=== PATIENT | female | born 1975 | race Caucasian/White ===

== ENCOUNTER → 2018-02-17 | Outpatient (CLI) | payer BC ==
--- NOTE | 2018-02-17 10:26 | MM ---
Reason for exam: additional evaluation requested from prior study. Last mammogram was performed 3 years and 5 months ago. History: Patient has history of breast cancer at age 38 and had first child at age 34. Radiation therapy of the right breast, January 2014. Lumpectomy of the right breast, September 16, 2013. Chemotherapy, August 2013. Malignant u/S right breast needle core of the right breast, July 30, 2013. Malignant u/S right breast needle core of the right breast, July 30, 2013. Implant Removal of both breasts, 2002. Saline implants, 2001. Implant Removal of both breasts, 2001. Took hormonal contraceptives for 20 years. Took antineoplastic for 4 months beginning at age 39. Physical Findings: Nurse Summary: 0.5cm nodule in the right breat at 10 o'clock scar (nurse dw). MG 3D Diag Mammo W/Cad JULIET Bilateral CC and MLO view(s) were taken. Prior study comparison: September 23, 2014, bilateral MG diagnostic mammo w CAD JULIET. July 30, 2013, right breast diagnostic digital santiago. There are scattered fibroglandular densities. No significant new findings when compared with previous films. These results were verbally communicated with the patient and result sheet given to the patient on 02/17/18. ASSESSMENT: Incomplete: need additional imaging evaluation, BI-RAD 0 RECOMMENDATION: Ultrasound of the right breast.
--- NOTE | 2018-02-17 10:36 | USB ---
Reason for exam: additional evaluation requested from abnormal screening. History: Patient has history of breast cancer at age 38 and had first child at age 34. Radiation therapy of the right breast, January 2014. Lumpectomy of the right breast, September 16, 2013. Chemotherapy, August 2013. Malignant u/S right breast needle core of the right breast, July 30, 2013. Malignant u/S right breast needle core of the right breast, July 30, 2013. Implant Removal of both breasts, 2002. Saline implants, 2001. Implant Removal of both breasts, 2001. Took hormonal contraceptives for 20 years. Took antineoplastic for 4 months beginning at age 39. US Breast Limited RT Technologist: Elina Woods, RT (R)(M) Right limited breast ultrasound including focal area of concern, retroareolar and axilla demonstrates a 10 x 5 x 7mm fluid collections within post surgical changes at 10 o'clock scar. These results were verbally communicated with the patient and result sheet given to the patient on 02/17/18. ASSESSMENT: Suspicious, BI-RAD 4 RECOMMENDATION: Surgical consultation of the right breast. Called Dr. Costa with mammographic findings and has scheduled an appointment for the patient for 03/19/18 at 10:[address] Florian. PRELIMINARY REPORT CALLED AND FAXED TO DR. FLORIAN ON 02/17/18.
== END | disposition home or self-care (01) ==
LOC: RADMAMWWP 08:25
PROVIDERS: ATTEND Family Medicine
DX: R92.8 Other abnormal and inconclusive findings on diagnostic imaging of breast (principal); C50.919 Malignant neoplasm of unspecified site of unspecified female breast
CPT/HCPCS: 77062; 77066

== ENCOUNTER → 2018-03-19 | Outpatient (CLI) | payer BC ==
[2018-03-19 11:23] VITALS: BP 110/63; PULSE 78; RESP 16; TEMP 97.7; BMI 31.2
--- NOTE | 2018-03-19 12:46 | P.GSHP ---
History of Present Illness H&P Date: 03/19/18 Chief Complaint: Abnormal right breast mammogram The patient is a 42-year-old white female who is status post right breast lumpectomy and axillary node dissection in 2013 for a right breast cancer. The treatment was done at [facility] and the patient is unsure of this stage of the disease. The patient did receive chemotherapy and radiation therapy. She took tamoxifen for approximately 4 months but then declined further treatment with tamoxifen.. The patient did have bilateral breast implants prior to the diagnosis of breast cancer and both have been removed. The patient has not followed up with her breast since her surgery, her medical oncologist is also [facility] and she has not followed with him either. She is also not followed with a radiation oncologist at [facility]. This is her first mammogram since 2013. She did have a bilateral mammogram on . This showed scattered fibroglandular densities with no new significant findings. She states that her original tumor did have 4 nodes positive out of 20 although she does not know the tumor size. Findings compared with previous films. She subsequently had an ultrasound done of the right breast which revealed a 10 x 5 x 7 mm fluid collection with post surgical changes at the 10:00 scar area. This was considered to be suspicious and surgical consultation was recommended. The patient herself states she does not feel anything new and her breast. She has not had any nipple discharge or changes in her breast that she is concerned about. The patient declined genetic testing at the time of her initial diagnosis. Family history: negative for cancer Past Surgical History: 1. Bilateral breast implants since removed 2. Right breast lumpectomy and axillary node dissection Past medical history: 1. Elevated cholesterol Hormonal history: Menarche: 15 Pregnancies: at 33, and a misgcarrage in 2001, 2, 1 child, breastfed: yes periods: irregular LMP: 3 weeks ago, q 21 days control pills: 10 years, not used since diagnosis Hormones: Negative Did try tamoxifen for approximately 4 months Social history: Smoking: Negative Alcohol: Occasional Marijuana: Occasional No other drug use - Constitutional Comment: BMI: 31.2 Constitutional: Denies chills, Denies fever - EENT Comment: lassix surgery Eyes: denies blurred vision, denies pain Ears: deny: decreased hearing Ears, nose, mouth and throat: Denies headache, Denies sore throat - Breasts Breasts: bilateral: as per HPI - Cardiovascular Comment: high cholesterol Cardiovascular: Denies chest pain, Denies shortness of breath - Respiratory Respiratory: Denies cough, Denies 7 - Gastrointestinal Gastrointestinal: Denies abdominal pain, Denies diarrhea, Denies nausea, Denies vomiting - Genitourinary (Female) Genitourinary: Denies dysuria, Denies hematuria - Menstruation Menstruation: Reports period normal - Musculoskeletal Comment: aches in bones since chemotherapy ACT chemotherapy regime Musculoskeletal: Denies myalgias - Integumentary Integumentary: Denies pruritus, Denies rash - Neurological Neurological: Denies numbness, Denies weakness - Psychiatric Psychiatric: Reports anxiety, Denies depression - Endocrine Endocrine: Denies fatigue, Denies weight change - Hematologic/Lymphatic Comment: none - Allergic/Immunologic Allergic/Immunologic: Reports seasonal allergies Past Medical History Past Medical History: Cancer Additional Past Medical History / Comment(s): Right breast Cancer History of Any Multi-Drug Resistant Organisms: None Reported Past Surgical History: Breast Surgery Additional Past Surgical History / Comment(s): mediport, lymph nodes and mass removed from right breast Past Anesthesia/Blood Transfusion Reactions: Previous Problems w/ Anesthesia, Postoperative Nausea & Vomiting (PONV) Additional Past Anesthesia/Blood Transfusion Reaction / Comment(s): vomiting Past Psychological History: No Psychological Hx Reported Smoking Status: Never smoker Past Alcohol Use History: None Reported Past Drug Use History: None Reported - Past Family History Mother Family Medical History: Diabetes Mellitus, Hypertension Medications and Allergies Home Medications Medication Instructions Recorded Confirmed Type Zolpidem Tartrate [Ambien Cr] 10 mg PO HS 10/04/14 03/19/18 History Ibuprofen 800 mg PO DAILY PRN 03/19/18 03/19/18 History Multivitamins, Thera [Multivitamin 1 tab PO DAILY 03/19/18 03/19/18 History (formulary)] Allergies Allergy/AdvReac Type Severity Reaction Status Date / Time No Known Allergies Allergy Verified 03/19/18 11:15 Surgical - Exam Vital Signs Temp Pulse Resp BP Pulse Ox 97.7 F 78 16 110/63 99 03/19/18 11:17 03/19/18 11:17 03/19/18 11:17 03/19/18 11:17 03/19/18 11:17 BMI 31.2 - General obese - Eyes normal ocular movement - ENT no hearing loss, no congestion - Neck no masses, trachea midline - Respiratory normal respiratory effort, clear to auscultation - Cardiovascular Rhythm: regular Heart Sounds: normal: S1, S2 - Abdomen Abdomen: soft - Integumentary no rash - Neurologic no disoriented, no combative - Musculoskeletal normal gait, normal posture - Psychiatric oriented to time, oriented to person, oriented to place, speech is normal, memory intact Breast examination: Right breast: Multi-positional exam reveals scarred related to prior lumpectomy no dominant masses or nodules of concern, periareolar incision related to prior reduction and breast implant Right axilla: Well-healed scar from prior axillary dissection no dominant masses or nodules of concern no adenopathy of concern Left breast: Multiple positional exam reveals scar tissue related to prior reduction mammoplasty and implant placement and removal otherwise no dominant masses or nodules of concern Left axilla: No adenopathy of concern Results radiographs/mammogram and ultrasound reports reviewed Assessment and Plan Assessment: Impression/plan: 1. Status post right breast lumpectomy axillary node dissection 2. Patient told that she had 4 out of 20 lymph nodes positive 3. We will request staging from [facility] 4. Possibly elevated cholesterol Plan: 1. To review radiograph and ultrasound with radiologist and less they recommend further interventions patient will follow up in 6 months time 2. Continued surveillance here related to her prior breast cancer cc: DR. Ted Costa
--- NOTE | 2018-03-19 16:30 | P.PN ---
Progress Note - Text Progress Note Date: 03/19/18 The patient's mammogram and ultrasound were reviewed with the radiologist. At this time the radiologist is recommending only six-month repeat ultrasound of the right breast this the patient notices anything of concern. This information will be relayed to the patient. Therefore recommending repeat physician exam and ultrasound of the right breast in 6 months.
== END | disposition home or self-care (01) ==
LOC: WWCWWP 09:57
PROVIDERS: ATTEND Surgery
DX: Z53.9 Procedure and treatment not carried out, unspecified reason (principal)

== ENCOUNTER → 2020-04-20 | Outpatient (CLI) | payer OTHER ==
--- NOTE | 2020-04-20 10:18 | MM ---
Reason for exam: additional evaluation requested from prior study. Last mammogram was performed 2 years and 2 months ago. History: Patient has history of breast cancer at age 38 and had first child at age 34. Radiation therapy of the right breast, January 2014. Lumpectomy of the right breast, September 16, 2013. Chemotherapy, August 2013. Malignant u/S right breast needle core of the right breast, July 30, 2013. Malignant u/S right breast needle core of the right breast, July 30, 2013. Implant Removal of both breasts, 2002. Saline implants, 2001. Implant Removal of both breasts, 2001. Took hormonal contraceptives for 10 years. Took antineoplastic for 4 months beginning at age 39. Physical Findings: Nurse Summary: 2cm adenopathy in the left axilla (nurse TM). MG Diagnostic Mammo w CAD JULIET Bilateral CC and MLO view(s) were taken. Prior study comparison: February 17, 2018, bilateral MG 3d diag mammo w/cad JULIET. September 23, 2014, bilateral MG diagnostic mammo w CAD JULIET. There are scattered fibroglandular densities. Questionable enlarged left axillary node. This finding is changed when compared with previous exams. These results were verbally communicated with the patient and result sheet given to the patient on 04/20/20. ASSESSMENT: Incomplete: need additional imaging evaluation, BI-RAD 0 RECOMMENDATION: Ultrasound of the left breast. (axilla) Manage patient on a clinical basis.
--- NOTE | 2020-04-20 10:20 | USB ---
Reason for exam: additional evaluation requested from abnormal screening. History: Patient has history of breast cancer at age 38 and had first child at age 34. Radiation therapy of the right breast, January 2014. Lumpectomy of the right breast, September 16, 2013. Chemotherapy, August 2013. Malignant u/S right breast needle core of the right breast, July 30, 2013. Malignant u/S right breast needle core of the right breast, July 30, 2013. Implant Removal of both breasts, 2002. Saline implants, 2001. Implant Removal of both breasts, 2001. Took hormonal contraceptives for 10 years. Took antineoplastic for 4 months beginning at age 39. US Breast Limited BILAT Right complete breast ultrasound includes all four quadrants, the retroareolar region and axilla. Finding demonstrates a 10 x 4mm fluid collection within scar at 10 o'clock. Left limited breast ultrasound including focal area of concern, retroareolar and axilla demonstrates no cystic or solid lesion seen at palpable. These results were verbally communicated with the patient and result sheet given to the patient on 04/20/20. ASSESSMENT: Benign, BI-RAD 2 RECOMMENDATION: Surgical consultation of the left breast. (questionable adenopathy left axilla) Manage on a clinical basis with regard to palpable left axilla. Called Dr. Maxwell's office with mammographic findings and has scheduled an appointment for the patient for 05/17/20 at 4:[address] Archer. PRELIMINARY REPORT CALLED AND FAXED TO DR. ARCHER ON 04/20/20.
== END | disposition home or self-care (01) ==
LOC: RADMAMWWP 08:12
PROVIDERS: ATTEND Family Medicine
DX: Z08 Encounter for follow-up examination after completed treatment for malignant neoplasm (principal); L03.313 Cellulitis of chest wall; R21 Rash and other nonspecific skin eruption; Z85.3 Personal history of malignant neoplasm of breast
CPT/HCPCS: 77066

== ENCOUNTER → 2024-01-27 | Outpatient (CLI) | payer OTHER ==
--- NOTE | 2024-01-27 17:01 | MR ---
EXAMINATION TYPE: MR lumbar spine wo/w con DATE OF EXAM: 01/27/2024 COMPARISON: None HISTORY: LBP with BLE radiculopathy, metastatic breast cancer. CONTRAST: 6 mL intravenous Gadavist. TECHNIQUE: Multiplanar, multisequence images of the lumbar spine were acquired. FINDINGS: There is a heterogenous appearance throughout the lumbar spine of the vertebral bodies. Scattered are as of irregular increased signal are present on T2 and inversion recovery weighted sequences. Followi ng contrast there is irregular enhancement. Some irregularity is also noted within the sacrum. Findin gs can be compatible with multiple metastatic lesions throughout the lumbar and sacral spine. L5-S1: No significant disc bulge or disc herniation. No spinal canal stenosis. No foraminal stenosi s. L4-L5: No significant disc bulge or disc herniation. No spinal canal stenosis. No foraminal stenosi s. L3-L4: No significant disc bulge or disc herniation. No spinal canal stenosis. No foraminal stenosi s. L2-L3: No significant disc bulge or disc herniation. No spinal canal stenosis. No foraminal stenosi s. L1-L2: No significant disc bulge or disc herniation. No spinal canal stenosis. No foraminal stenosi s. T12-L1: No significant disc bulge or disc herniation. No spinal canal stenosis. No foraminal stenos is. IMPRESSION: 1. Heterogenous appearance with irregular enhancement pattern through the lumbar spine as well as vis ualized portions of the sacrum suspicious for multiple osseous metastatic lesions. 2. No suspicious intraspinal canal findings
== END | disposition home or self-care (01) ==
LOC: RADMRIMAIN 15:14
PROVIDERS: ATTEND Internal Medicine Hematology & Oncology
DX: C50.811 Malignant neoplasm of overlapping sites of right female breast (principal)
CPT/HCPCS: 72158

== ENCOUNTER 2024-01-30 05:30 | Observation (INO) | payer OTHER ==
[2024-01-30] MEDS: SODIUM CHLORIDE 0.9% 1,000 ML IV STA ×2 (06:27→08:53)
--- NOTE | 2024-01-30 06:28 | ED ---
Nausea/Vomiting/Diarrhea HPI - General Chief complaint: Nausea/Vomiting/Diarrhea Stated complaint: NV Time Seen by Provider: 01/30/24 06:26 Source: patient, RN notes reviewed Mode of arrival: ambulatory Limitations: no limitations - History of Present Illness Initial comments: 48-year-old female presented to the ER with a chief complaint of nausea and vo miting. Patient has known stage IV breast cancer and is following with Dr. Polanco. Is not currently undergoing chemo. She states for the past 3 days she has been extremely nauseous and unable to eat. She has been noting bilious vomit. Denies any hematic emesis. Patient has tried ODT Zofran without relief. She states 30 minutes after taking Zofran she will have continuous vomiting. Patient also has tried Pepto-Bismol without relief. She denies any abdominal pain or fevers. Denies any urinary complaints. Patient does report constipation but states she has not eaten anything which she believes to be contributing. Denies any chest pain, shortness of breath, cough, congestion or peripheral edema. - Related Data Home Medications Medication Instructions Recorded Confirmed Letrozole [Femara] 2.5 mg PO DIRECTED 01/30/24 01/30/24 Omeprazole 40 mg PO DAILY 01/30/24 01/30/24 Ribociclib Succinate/Letrozole 3 tab PO DIRECTED 01/30/24 01/30/24 [Kisqali Femara 200 mg Co-Pack] dexAMETHasone [Decadron] See Taper PO DIRECTED 01/30/24 01/30/24 ondansetron HCL [Zofran] 8 mg PO TID PRN 01/30/24 01/30/24 traMADol HCL 50 mg PO TID PRN 01/30/24 01/30/24 Allergies Allergy/AdvReac Type Severity Reaction Status Date / Time No Known Allergies Allergy Verified 01/30/24 10:19 Review of Systems ROS Statement: Those systems with pertinent positive or pertinent negative responses have been documented in the HPI. ROS Other: All systems not noted in ROS Statement are negative. Past Medical History Past Medical History: Cancer, GERD/Reflux Additional Past Medical History / Comment(s): Routine colonoscopy. Right breast cancer, external hemorrhoids. History of Any Multi-Drug Resistant Organisms: None Reported Past Surgical History: Breast Surgery Additional Past Surgical History / Comment(s): mediport, lymph nodes and mass removed from right breast bilateral implants/removed Past Anesthesia/Blood Transfusion Reactions: Postoperative Nausea & Vomiting (PONV) Additional Past Anesthesia/Blood Transfusion Reaction / Comment(s): PT HAS SE YOVANI PONV. Past Psychological History: No Psychological Hx Reported Smoking Status: Never smoker Past Alcohol Use History: Occasional Past Drug Use History: Marijuana - Past Family History Mother Family Medical History: Diabetes Mellitus, Hypertension General Exam Limitations: no limitations General appearance: alert, in no apparent distress Respiratory exam: Present: normal lung sounds bilaterally. Absent: respiratory distress, wheezes, rales, rhonchi, stridor Cardiovascular Exam: Present: regular rate, normal rhythm, normal heart sounds. Absent: systolic murmur, diastolic murmur, rubs, gallop, clicks GI/Abdominal exam: Present: soft, normal bowel sounds. Absent: distended, tenderness, guarding, rebound, rigid Extremities exam: Present: normal inspection, full ROM, normal capillary refill. Absent: tenderness, pedal edema, joint swelling, calf tenderness Neurological exam: Present: alert, oriented X3, CN II-XII intact Skin exam: Present: warm, dry, intact, normal color. Absent: rash Course Vital Signs 01/30/24 01/30/24 01/30/24 05:35 08:45 09:55 Temperature 99.1 F 97.9 F 98 F Pulse Rate 76 74 73 Respiratory 18 16 16 Rate Blood Pressure 124/78 91/57 97/63 O2 Sat by Pulse 99 97 98 Oximetry - Reevaluation(s) Reevaluation #1: 01/30/24 09:13 [facility]. Medical Decision Making - Medical Decision Making Was pt. sent in by a medical professional or institution (, PA, WINDING INSPECTOR, urgent care, hospital, or intermediate...) When possible be specific @ -No Did you speak to anyone other than the patient for history (EMS, parent, family, police, friend...)? What history was obtained from this source @ -No Did you review nursing and triage notes (agree or disagree)? Why? @ -I reviewed and agree with nursing and triage notes Were old charts reviewed (outside hosp., previous admission, EMS record, old EK G, old radiological studies, urgent care reports/EKG's, intermediate records)? Report findings @ -No old charts were reviewed Differential Diagnosis (chest pain, altered mental status, abdominal pain women, abdominal pain men, vaginal bleeding, weakness, fever, dyspnea, syncope, headache, dizziness, GI bleed, back pain, seizure, CVA, palpatations, mental health, musculoskeletal)? @ -Differential Abdominal Pain Women:Appendicitis, Cholecystitis, diverticulosis, ischemic bowel, pancreatitis, hepatitis, UTI, gastroenteritis, AAA, incarcerated hernia, bowel obstruction, constipation, inflammatory bowel, hepatitis, peptic ulcer disease, splenic infarction, perforated viscus, vulvitis, ovarian torsion, PID, kidney stone, placenta abruption, this is not meant to be an all-inclusive list EKG interpreted by me (3pts min.). @ -As above X-rays interpreted by me (1pt min.). @ -None done CT interpreted by me (1pt min.). @ -None done U/S interpreted by me (1pt. min.). @ -None done What testing was considered but not performed or refused? (CT, X-rays, U/S, labs)? Why? @ -None What meds were considered but not given or refused? Why? @ -None Did you discuss the management of the patient with other professionals (professionals i.e. , PA, WINDING INSPECTOR, lab, RT, psych nurse, psychosocial rehabilitation counselor, honest john rocket crew member, teacher, flight deck officer, catalytic case operator)? Give summary @ -Yes, [facility]. Was smoking cessation discussed for >3mins.? @ -No Was critical care preformed (if so, how long)? @ -No Were there social determinants of health that impacted care today? How? (Homelessness, low income, unemployed, alcoholism, drug addiction, transportation, low edu. Level, literacy, decrease access to med. care, care home, rehab)? @ -No Was there de-escalation of care discussed even if they declined (Discuss DNR or withdrawal of care, Hospice)? DNR status @ -No What co-morbidities impacted this encounter? (DM, HTN, Smoking, COPD, CAD, Cancer, CVA, ARF, Chemo, Hep., AIDS, mental health diagnosis, sleep apnea, morbid obesity)? @ -Breast cancer Was patient admitted / discharged? Hospital course, mention meds given and route, prescriptions, significant lab abnormalities, going to OR and other pertinent info. @ -Admitted. 48 year old presented to ER with a chief complaint of nausea and vomiting. History and physical exam completed. Vitals within normal limits. Patient in no signs of acute distress and nontoxic-appearing. Laboratory studies obtained showing microcytic hypochromic anemia hemoglobin 9.8 which appears to be chronic in nature. Hypokalemia 3.2. Paitent given IV fluids, zofran and reglan with minor improvement in symptoms. Admission considered for intractable nausea. Case discussed with [facility], Dr. Bay, for admission. Oncology on consult. Patient did have a drop in blood pressure to 91/57 during ER evaluation maintenance fluids started at that time. Potassium replaced. Patient agreeable for admission. Patient admitted in stable condition for further evaluation and treatment. Case discussed with ED attending, Dr. Mckenzie. Undiagnosed new problem with uncertain prognosis? @ -No Drug Therapy requiring intensive monitoring for toxicity (Heparin, Nitro, Insulin, Cardizem)? @ -No Were any procedures done? @ -No Diagnosis/symptom? @ -Intractable nausea/breast cancer Acute, or Chronic, or Acute on Chronic? @ -Acute Uncomplicated (without systemic symptoms) or Complicated (systemic symptoms)? @ -Complicated Side effects of treatment? @ -No Exacerbation, Progression, or Severe Exacerbation? @ -No Poses a threat to life or bodily function? How? (Chest pain, [place], [place], pneumonia, PE, COPD, DKA, ARF, appy, cholecystitis, CVA, Diverticulitis, Homicidal, Suicidal, threat to staff... and all critical care pts) @ -Yes malignancy - Lab Data Result diagrams: 01/30/24 06:27 01/30/24 06:27 Lab Results 01/30/24 01/30/24 Range/Units 06:27 06:27 WBC 6.8 (3.8-10.6) k/uL RBC 4.13 (3.80-5.40) m/uL Hgb 9.8 L (11.4-16.0) gm/dL Hct 30.7 L (34.0-46.0) % MCV 74.5 L (80.0-100.0) fL MCH 23.7 L (25.0-35.0) pg MCHC 31.9 (31.0-37.0) g/dL RDW 18.6 H (11.5-15.5) % Plt Count 721 H (150-450) k/uL MPV 6.9 Neutrophils % 58 % Lymphocytes % 33 % Monocytes % 7 % Eosinophils % 0 % Basophils % 0 % Neutrophils # 3.9 (1.3-7.7) k/uL Lymphocytes # 2.3 (1.0-4.8) k/uL Monocytes # 0.5 (0-1.0) k/uL Eosinophils # 0.0 (0-0.7) k/uL Basophils # 0.0 (0-0.2) k/uL Hypochromasia Moderate Anisocytosis Slight Microcytosis Moderate Sodium 141 (137-145) mmol/L Potassium 3.2 L (3.5-5.1) mmol/L Chloride 103 (98-107) mmol/L Carbon Dioxide 26 (22-30) mmol/L Anion Gap 12 mmol/L BUN 13 (7-17) mg/dL Creatinine 0.54 (0.52-1.04) mg/dL Est GFR (CKD-EPI)AfAm >90 (>60 ml/min/1.73 sqM) Est GFR (CKD-EPI)NonAf >90 (>60 ml/min/1.73 sqM) Glucose 165 H (74-99) mg/dL Calcium 8.9 (8.4-10.2) mg/dL Total Bilirubin 0.6 (0.2-1.3) mg/dL AST 29 (14-36) U/L ALT 14 (4-34) U/L Alkaline Phosphatase 97 (38-126) U/L Total Protein 6.6 (6.3-8.2) g/dL Albumin 3.7 (3.5-5.0) g/dL - EKG Data -: EKG Interpreted by Dc EKG Comments: EKG taken at 9: 22 showing a normal sinus rhythm no acute ST segment or T wave abnormalities. Normal axis. Ventricular rate 71, NJ interval 131, QRS duration 89, QT/QTc 425/447. Disposition Clinical Impression: Breast cancer, Intractable nausea and vomiting Disposition: ADMITTED IP TO THIS [facility] Condition: Stable Referrals: Matthew Chau MD [Primary Care Provider] - 1-2 days Time of Disposition: 09:13
[2024-01-30] MEDS: ONDANSETRON 4 MG/2 ML VIAL IVP STA (06:29)
[2024-01-30 06:44] LABS: Anisocytosis Slight; Basophils % (A) 0 %; Eosinophils % (A) 0 %; HCT 30.7 % (34.0-46.0); HGB 9.8 gm/dL (11.4-16.0); Hypochromasia Moderate; Lymphocytes # (A) 2.3 k/uL (1.0-4.8); Lymphocytes % (A) 33 %; MCH 23.7 pg (25.0-35.0); MCHC 31.9 g/dL (31.0-37.0); MCV 74.5 fL (80.0-100.0); Mean Platelet Volume 6.9; Microcytosis Moderate; Monocytes # (A) 0.5 k/uL (0-1.0); Monocytes % (A) 7 %; Neutrophils # (A) 3.9 k/uL (1.3-7.7); Neutrophils % (A) 58 %; Platelet Count 721 k/uL (150-450); RBC 4.13 m/uL (3.80-5.40); RDW 18.6 % (11.5-15.5); WBC 6.8 k/uL (3.8-10.6)
[2024-01-30 06:46] LABS: ALT 14 U/L (4-34); AST 29 U/L (14-36); African American GFR (CKD) >90 (>60 ml/min/1.73 sqM); Albumin 3.7 g/dL (3.5-5.0); Alkaline Phosphatase 97 U/L (38-126); Anion Gap 12 mmol/L; Blood Urea Nitrogen 13 mg/dL (7-17); Calcium 8.9 mg/dL (8.4-10.2); Carbon Dioxide 26 mmol/L (22-30); Chloride 103 mmol/L (98-107); Glucose 165 mg/dL (74-99); Non-African American GFR(CKD) >90 (>60 ml/min/1.73 sqM); Potassium 3.2 mmol/L (3.5-5.1); Sodium 141 mmol/L (137-145); Total Bilirubin 0.6 mg/dL (0.2-1.3); Total Protein 6.6 g/dL (6.3-8.2)
[2024-01-30] MEDS: METOCLOPRAMIDE 5 MG/ML 2 ML VIAL IVP STA (07:49)
[2024-01-30] MEDS ORDERED: IBUPROFEN 400 MG TAB PO PRN (09:11)
[2024-01-30] MEDS ORDERED: ACETAMINOPHEN TAB 325 MG TAB PO PRN (09:11)
[2024-01-30] MEDS ORDERED: ONDANSETRON 4 MG/2 ML VIAL IVP PRN (09:11)
[2024-01-30] MEDS ORDERED: NALOXONE 0.4 MG/ML 1 ML VIAL IV PRN (09:11)
[2024-01-30] MEDS ORDERED: HYDROmorphone 0.5 MG/0.5 ML SYRINGE IVP PRN (09:11)
[2024-01-30] MEDS ORDERED: Potassium Replacement Protocol 1 EACH MISC MISCELLANE PRN (09:12)
[2024-01-30] MEDS: POTASSIUM CHLORIDE 10 MEQ in WATER FOR INJECTION 1 100ML.BAG IVPB SCH (09:32)
[2024-01-30 09:57] VITALS: TEMP 98
--- NOTE | 2024-01-30 16:48 | XR ---
EXAMINATION TYPE: XR abdomen 2V DATE OF EXAM: 01/30/2024 COMPARISON: NONE HISTORY: 48-year-old female constipation, nausea and vomiting TECHNIQUE: None FINDINGS: Lung bases are clear. No evidence for free intraperitoneal air. Mild stool burden. Air exte nds distally to the rectum. Phleboliths in the right side of the pelvis. No suspicious calcification seen. IMPRESSION: Mild stool burden. No evidence for free air or bowel obstruction.
[2024-01-30] MEDS: ONDANSETRON 4 MG/2 ML VIAL IVP PRN (18:13)
[2024-01-30] MEDS: MAGNESIUM HYDROXIDE 2,400 MG/30 ML CUP PO PRN (18:17)
[2024-01-30] MEDS: DOCUSATE 100 MG CAP PO SCH (18:17)
[2024-01-30 18:40] VITALS: RESP 16
[2024-01-30 18:41] VITALS: BP 112/70; PULSE 70
--- NOTE | 2024-01-30 19:17 | P.CONS ---
History of Present Illness - Reason for Consult Consult date: 01/30/24 hx breast cancer Requesting physician: Karina Foster - Chief Complaint nausea/vomting - History of Present Illness Patient is a 48 year old female with a history of metastatic breast cancer. She is a patient of Dr. Polanco. She intially presented with swelling in her right breast she first noticed around mid . She was referred for breast mammograms which were done on 07/16/2013 and revealed a suspicious 1.0x0.6x1.0cm right breast mass at 10 o'clock and a 3.9cm suspicious right axillary node,the finding were confirmed on ultrasound. Biopsy of the right breast and axilla lesions,both were positive for grade II,invasive ductal carcinoma. She transferred care at that time to [facility],underwent right breast lumpectomy and axillary nodes dissection,received adjuvant ACT regimen at [facility] and then had radiation therapy at [facility],she was placed on tamoxifen,she only took it for few months and stopped it. On 08/11/2023,CT scan of chest/abdomen/pelvis and bone scan were negative for mets. She then presented to the clinic on 01/05/2024 because she has been feeling nauseated,lost about 30 pounds within the last 2 months and noticed subcutaneous lesion in right breast. On 01/09/2024,CT chest/abdomen/pelvis showed diffuse osseous mets,no visceral disease. On 12/31,she had skin biopsy of right chest wall,which came back positive for invasive ductal carcinoma,ER positive (total scroe 6),IL positive (total score 5). HER2/ROSANNE 2+ by IHC. MRI of lumbar spine was ordered and referral has been placed to radiaton oncology. On /u on 01/25, patient was started on decadron for BLE bone pain. Treatment plan was discussed with zoladex, letrozole and kisqali and zometa. Currently awaiting prior auth to start treatment Patient presented to the emergency room with intractable nausea vomiting. Patient states 2 days ago she began having progressing nausea vomiting. She does note that she went out to eat prior but states her family ate the same and did not get sick. She denies diarrhea, fever and chills. She states she has been constipated and last bowel movement was 1 week ago. She also reports that she was tolerating the dexamethasone that she started 2 days prior to symptom onset and has been taking omeprazole daily so does not believe this was related to her symptoms. Upon admission temperature was noted at 99.1, hemodynamically stable, but BP soft. WBC 6.8, hemoglobin 9.8, platelets 721,000. Creatinine 0.54, GFR greater than 90. Patient was given normal saline bolus and started on continuous hydration. She was also given antiemetics and reports she is feeling improvement in symptoms. Review of Systems 10 point ROS is negative except as stated in the HPI Past Medical History Past Medical History: Cancer, GERD/Reflux Additional Past Medical History / Comment(s): Routine colonoscopy. Right breast cancer, external hemorrhoids. History of Any Multi-Drug Resistant Organisms: None Reported Past Surgical History: Breast Surgery Additional Past Surgical History / Comment(s): mediport, lymph nodes and mass removed from right breast bilateral implants/removed Past Anesthesia/Blood Transfusion Reactions: Postoperative Nausea & Vomiting (PONV) Additional Past Anesthesia/Blood Transfusion Reaction / Comm: PT HAS SEVERE PONV. Past Psychological History: No Psychological Hx Reported Smoking Status: Never smoker Past Alcohol Use History: Occasional Past Drug Use History: Marijuana - Past Family History Mother Family Medical History: Diabetes Mellitus, Hypertension Medications and Allergies Home Medications Medication Instructions Recorded Confirmed Type Letrozole [Femara] 2.5 mg PO DIRECTED 01/30/24 01/30/24 History Omeprazole 40 mg PO DAILY 01/30/24 01/30/24 History Ribociclib Succinate/Letrozole 3 tab PO DIRECTED 01/30/24 01/30/24 History [Kisqali Femara 200 mg Co-Pack] dexAMETHasone [Decadron] See Taper PO DIRECTED 01/30/24 01/30/24 History ondansetron HCL [Zofran] 8 mg PO TID PRN 01/30/24 01/30/24 History traMADol HCL 50 mg PO TID PRN 01/30/24 01/30/24 History Allergies Allergy/AdvReac Type Severity Reaction Status Date / Time No Known Allergies Allergy Verified 01/30/24 10:19 Physical Exam Vitals: Vital Signs Temp Pulse Resp BP Pulse Ox 01/30/24 09:55 98 F 73 16 97/63 98 01/30/24 08:45 97.9 F 74 16 91/57 97 01/30/24 05:35 99.1 F 76 18 124/78 99 Intake and Output 01/29/24 01/30/24 01/30/24 22:59 06:59 14:59 Other: Weight 61.689 kg - Constitutional General appearance: average body habitus, no acute distress - EENT Eyes: anicteric sclerae, EOMI ENT: hearing grossly normal - Respiratory Respiratory: bilateral: CTA - Cardiovascular Rhythm: regular Heart sounds: normal: S1, S2 - Gastrointestinal General gastrointestinal: soft, no tenderness - Integumentary Integumentary: no cyanotic, no jaundiced - Neurologic Neurologic: CNII-XII intact - Musculoskeletal Musculoskeletal: strength equal bilaterally - Psychiatric Psychiatric: A&O x's 3 Results CBC & Chem 7: 01/30/24 06:27 01/30/24 06:27 Labs: Abnormal Lab Results - Last 24 Hours (Table) 01/30/24 01/30/24 Range/Units 06:27 06:27 Hgb 9.8 L (11.4-16.0) gm/dL Hct 30.7 L (34.0-46.0) % MCV 74.5 L (80.0-100.0) fL MCH 23.7 L (25.0-35.0) pg RDW 18.6 H (11.5-15.5) % Plt Count 721 H (150-450) k/uL Potassium 3.2 L (3.5-5.1) mmol/L Glucose 165 H (74-99) mg/dL Assessment and Plan (1) Constipation Status: Acute Priority: Medium Code(s): K59.00 - CONSTIPATION, UNSPECIFIED SNOMED Code(s): 99386301 (2) Breast cancer Status: Acute Priority: Medium Code(s): C50.919 - MALIGNANT NEOPLASM OF UNSP SITE OF UNSPECIFIED FEMALE BREAST SNOMED Code(s): 126172418 (3) Intractable nausea and vomiting Status: Acute Priority: High Code(s): R11.2 - NAUSEA WITH VOMITING, UNSPECIFIED SNOMED Code(s): 831380591 (4) Anemia Status: Acute Priority: Medium Code(s): D64.9 - ANEMIA, UNSPECIFIED SNOMED Code(s): 573816804 Plan: Metastatic breast cancer: -Full history in HPI -Plan to start treatment with zoladex, letrozole and kisqali and zometa. Currently awaiting prior auth to start treatment -Clinic f/u upon discharge Intractable N/V, constipation -Anti-emetics and IV fluids ordered. Symptoms significantly improved -Last BM 1 weeks ago. Will obtain abd x-ray to r/o obstruction -Colace and milk of magnesia ordered Microcytic anemia: -On admit hemoglobin 9.8, MCV 74.5, MCH 23.7, platelets 721,000. -Upon trending labs, pt has had hgb in 9-10 range in 2013 as well. No reported episodes of acute bleeding -Will obtain nutritional studies
[2024-01-30] MEDS ORDERED: PANTOPRAZOLE 40 MG/10 ML VIAL IVP SCH (21:00)
[2024-01-31 03:14] LABS: % Iron Saturation 10.44 (12.00-45.00)
== END 2024-01-30 18:50 | disposition home or self-care (01) ==
LOC: EC 05:30 → 5NMEDONC 10:34
PROVIDERS: ADMIT Internal Medicine; ATTEND Internal Medicine
DX: K59.00 Constipation, unspecified (principal); C50.911 Malignant neoplasm of unspecified site of right female breast; R11.2 Nausea with vomiting, unspecified; D64.9 Anemia, unspecified; Z17.0 Estrogen receptor positive status [ER+]; D50.9 Iron deficiency anemia, unspecified; Z85.3 Personal history of malignant neoplasm of breast; K21.9 Gastro-esophageal reflux disease without esophagitis; Z82.49 Family history of ischemic heart disease and other diseases of the circulatory system; Z83.3 Family history of diabetes mellitus
CPT/HCPCS: 36415; 74019; 80053; 82607; 82728; 82747; 83540; 83550; 85025; 93005; 96361; 96365; 96366; 96375; 96376; 99285

== ENCOUNTER 2024-02-25 05:59 | Day surgery (SDC) | payer OTHER ==
[2024-02-23 11:36] VITALS: BMI 27.0
[2024-02-25] MEDS: IV FLUID CONTINUATION 1,000 ML IV ONE (06:35)
[2024-02-25] MEDS ORDERED: LACTATED RINGERS 1,000 ML IV SCH (06:38)
[2024-02-25 06:45] VITALS: TEMP 98.1
[2024-02-25] MEDS ORDERED: LIDOCAINE 2% (PF) 20 MG/ML 5 ML VIAL ONE (06:59)
[2024-02-25] MEDS ORDERED: PROPOFOL 10 MG/ML 20 ML VIAL IV ONE (06:59)
--- NOTE | 2024-02-25 07:23 | P.PCN ---
Date of Procedure: 02/25/24 Procedure(s) Performed: Brief history: Patient is a pleasant 48-year-old white female scheduled for an elective upper endoscopy as well as colonoscopy as a part of evaluation of intermittent episodes of nausea vomiting and screening for colon cancer. She had progressive weight loss of 20 pounds in the last 6 months duration Procedure performed: Esophagogastroduodenoscopy with biopsy Colonoscopy Preoperative diagnosis: Chronic intermittent nausea vomiting/progressive weight loss Screening for colon cancer Anesthesia: MAC Procedure: After informed consent was obtained from the patient was brought into the endoscopy unit and IV sedation was administered by anesthesia under continuous monitoring. Initially upper endoscopy was done. The Olympus GF 160 video endoscope was inserted inserted into the mouth and esophagus intubated without any difficulty and was gradually advanced into the stomach and duodenum and carefully examined. The bulb and second part of the duodenum appeared normal. Biopsies were done from the duodenum to rule out celiac disease. The scope was then withdrawn into the stomach adequately insufflated with air and upon careful examination the antrum had mild gastritis and biopsies were done from this area. Mucosa of the body, cardia and fundus appeared normal. The scope was then withdrawn into the esophagus. Small hiatal hernia noted. The GE junction was located at 40 cm to the incisors. It appeared regular with no erythema erosions or ulcerations. Rest of the esophagus appeared normal. Patient tolerated the procedure well. At this time the patient continued to remain sedation. Initial digital rectal examination was normal. Olympus CF 160 video colonoscope was then inserted into the rectum and gradually advanced to the cecum without any difficulty. Careful examination was performed as the scope was gradually being withdrawn. The prep was excellent. The cecum, ascending colon, transverse colon, descending colon, sigmoid colon and rectum appeared normal. Retroflexion was performed in the rectum and no lesions were noted. Patient tolerated the procedure well. Impression: 1. Upper endoscopy revealed mild antral gastritis and small hiatal hernia 2. Colonoscopy was within normal limits with no evidence of colorectal neoplasia Recommendations: Findings of this examination were discussed with the patient as well as her family. She was advised to follow-up with the biopsy results. Continue with current medications. Follow-up in the office in 2 weeks. Recommended repeat screening colonoscopy in 10 years
[2024-02-25 07:41] VITALS: BP 111/57; PULSE 78; RESP 18
== END 2024-02-25 08:19 | disposition home or self-care (01) ==
LOC: ORWHC2ENDO 05:59
PROVIDERS: ATTEND Internal Medicine Gastroenterology
DX: K29.50 Unspecified chronic gastritis without bleeding (principal); K44.9 Diaphragmatic hernia without obstruction or gangrene; Z12.11 Encounter for screening for malignant neoplasm of colon
CPT/HCPCS: 43239; 45378; 81025; 88305

== ENCOUNTER → 2024-06-14 | Outpatient (CLI) | payer OTHER ==
[2024-06-14 13:33] LABS: African American GFR (CKD) >90 (>60 ml/min/1.73 sqM); Blood Urea Nitrogen 6 mg/dL (7-17); Non-African American GFR(CKD) >90 (>60 ml/min/1.73 sqM)
--- NOTE | 2024-06-14 15:22 | CT ---
EXAMINATION TYPE: CT ChestAbdPelvis w con CT DLP: 1292 mGycm, Automated exposure control for dose reduction was used. DATE OF EXAM: 06/14/2024 3:11 PM COMPARISON: Abdominal radiograph 01/30/2024, MRI lumbar spine 01/27/2024, chest abdomen and pelvis 08/10 CLINICAL INDICATION:Female, 49 years old with history of C50.811 BREAST CANCER; [facility], f/u breast ca Technique: Multiple axial images of the chest, abdomen, and pelvis were obtained following the intrav enous administration of 100 mL Isovue-300. Oral contrast was administered. Two-dimensional coronal an d sagittal reconstructions were obtained. Findings: CHEST: LUNGS/ PLEURA: No pleural effusion, pneumothorax, or focal consolidation. No suspicious pulmonary nod ule or mass. AIRWAY: Patent and unremarkable.. HEART: Size within normal limits.No pericardial effusion. MEDIASTINUM: No evidence of adenopathy. VASCULATURE: No aortic aneurysm. MUSCULOSKELETAL: No acute osseous abnormalities. Heterogenous appearance of the bilateral proximal hu julia. Patchy heterogenous sclerotic appearance involving the thoracic and lumbar spine and visualized cervical spine. This is new from prior CT. SOFT TISSUES/LYMPH NODES: Postsurgical changes within the right breast. Postsurgical changes from the right axilla dissection. No pathologically enlarged axillary lymph nodes identified. LOWER NECK: No significant findings. ABDOMEN: ABDOMEN LIVER: Unremarkable GALLBLADDER AND BILE DUCTS: Unremarkable. PANCREAS: Unremarkable. SPLEEN: Unremarkable. ADRENAL GLANDS: Unremarkable. KIDNEYS AND URETERS: No evidence of hydronephrosis or renal calculus. The kidneys enhance symmetrical ly. Left renal sinus cysts. Contrast is demonstrated within both collecting systems on the delayed ph ase. PELVIS BLADDER: Incompletely distended but grossly unremarkable. REPRODUCTIVE: Unremarkable. ABDOMEN & PELVIS STOMACH AND BOWEL: Small hiatal hernia, duodenum is unremarkable. Enteric contrast reaches the descen ding colon. No focal bowel wall thickening or surrounding inflammatory changes. No evidence of bowel obstruction. PERITONEUM: No evidence of pneumoperitoneum or free fluid. VASCULATURE: No evidence of aortic aneurysm. MUSCULOSKELETAL: No acute osseous abnormalities. Diffuse patchy heterogenous sclerotic appearance of the thoracolumbar spine and pelvic bones and bilateral proximal femurs. This is new from prior CT. LYMPH NODES: No evidence for lymphadenopathy. SOFT TISSUE/ABDOMINAL WALL: Unremarkable IMPRESSION: Post treatment changes within the right breast with scattered patchy sclerotic osseous lesions involv ing the visualized spine, pelvic bones, bilateral proximal femurs and bilateral proximal humeri. Find ings are highly concerning for osseous metastasis. No lymphadenopathy identified. [facility], , 06/14/2024 3:19 PM
== END | disposition home or self-care (01) ==
LOC: RADCTMAIN 12:48
PROVIDERS: ATTEND Internal Medicine Hematology & Oncology
DX: C50.811 Malignant neoplasm of overlapping sites of right female breast (principal); R63.4 Abnormal weight loss; D61.810 Antineoplastic chemotherapy induced pancytopenia; Z71.3 Dietary counseling and surveillance; Z98.890 Other specified postprocedural states
CPT/HCPCS: 82565; 84520; 71260; 74177; 36415; Q9967

== ENCOUNTER → 2024-10-22 | Outpatient (CLI) | payer OTHER ==
--- NOTE | 2024-10-22 11:07 | CT ---
EXAMINATION TYPE: CT ChestAbdPelvis w con DATE OF EXAM: 10/22/2024 9:17 AM COMPARISON: 06/14/2024, 01/09/2024 CLINICAL INDICATION: Female, 49 years old with history of C50.811 MALIGNANT NEOPLASM OF OVRLP SITES O F RIGHT; PH[facility], BREAST CA TECHNIQUE: CT of the chest, abdomen, and pelvis after IV contrast. Delayed images of the kidneys. Mul tiple axial images were obtained. Two-dimensional coronal and sagittal reconstructions were obtained. Contrast used:100 ml mL of Isovue 300 with IV Contrast, Oral contrast used: with Oral Contrast CT DLP: 1233 mGycm, Automated exposure control for dose reduction was used. Findings: CHEST: The heart is normal size without pericardial effusion. No significant coronary artery calcifications. Aorta normal caliber with conventional arch vessel branching anatomy. No thoracic lymphadenopathy by CT size criteria. Stable postlumpectomy changes central outer right br east and right axillary node dissection changes. No increasing abnormal soft tissue is identified. Lungs shows minimal subpleural reticular change anteriorly on the right suggesting previous radiation therapy change. No consolidation or pleural effusion. No suspicious pulmonary nodule is seen. ABDOMEN: Moderate size hiatal hernia. No focal liver lesion or biliary ductal dilatation. Portal venous system is patent. Gallbladder, adrenal glands, spleen, and pancreas within normal limits. Bilateral renal parapelvic cysts measuring up to 2.9 cm on the left and 2.5 cm on the right. Symmetri c uptake and excretion of contrast from both kidneys. No dilated small bowel, free fluid, or free air. No mesenteric or retroperitoneal lymphadenopathy. Normal appendix. Oral contrast progressed to the rectum. Scattered mild to moderate stool. No pericol onic inflammatory change. Pelvis: Mild to moderate circumferential bladder wall thickening. Uterus anteverted. Both ovaries are visualized. No abnormal fluid collection in the pelvis or pelvic lymphadenopathy. Bones: Diffuse sclerosis throughout the osseous structures similar to recent prior. IMPRESSION: 1. Stable exam status post right lumpectomy and axillary node dissection. 2. The appearance of diffuse osteosclerotic metastases is unchanged from the recent prior. 3. Moderate-sized hiatal hernia. [facility], Workstation: [id number], 10/22/2024 11:04 AM
== END | disposition home or self-care (01) ==
LOC: RADCTMAIN 07:03
PROVIDERS: ATTEND Internal Medicine Hematology & Oncology
DX: C50.811 Malignant neoplasm of overlapping sites of right female breast (principal); D61.810 Antineoplastic chemotherapy induced pancytopenia; K44.9 Diaphragmatic hernia without obstruction or gangrene; C79.51 Secondary malignant neoplasm of bone; Z71.3 Dietary counseling and surveillance
CPT/HCPCS: 71260; 74177; Q9967